=== PATIENT | male | born 1955 | race Caucasian/White ===

== ENCOUNTER 2017-07-21 06:50 | Day surgery (SDC) | payer BC, SELFPAY ==
[~2017-07-21] VITALS: Ht 172.7 cm; Wt 83.9 kg
[~2017-07-21 06:50] MED LIST: AMLO5 PO; ASPI81CH PO; ATOR10 PO; Aspir-Trin325 MG PO; FISH OIL + D31 EACH PO; GABA100 PO; MELO7.5; METO50ER PO; NITR.4SL SL; Norco 10-325 T1 EACH PO; PANT40 PO
== END 2017-07-21 22:36 | disposition home or self-care (01) ==
LOC: ORSCMMR 06:50
PROVIDERS: Internal Medicine Gastroenterology
PROC: 0DB68ZX Excision of Stomach, Via Natural or Artificial Opening Endoscopic, Diagnostic (ICD-10-PCS; principal; 2017-07-21 08:00)
PROC: 0DB58ZX Excision of Esophagus, Via Natural or Artificial Opening Endoscopic, Diagnostic (ICD-10-PCS; principal; 2017-07-21 08:00)
PROC: 0D758ZZ Dilation of Esophagus, Via Natural or Artificial Opening Endoscopic (ICD-10-PCS; principal; 2017-07-21 08:00)
PROC: 0DB48ZX Excision of Esophagogastric Junction, Via Natural or Artificial Opening Endoscopic, Diagnostic (ICD-10-PCS; principal; 2017-07-21 08:00)
DX: R13.14 Dysphagia, pharyngoesophageal phase (principal); K21.9 Gastro-esophageal reflux disease without esophagitis; K29.70 Gastritis, unspecified, without bleeding; K44.9 Diaphragmatic hernia without obstruction or gangrene; I10 Essential (primary) hypertension; I25.10 Atherosclerotic heart disease of native coronary artery without angina pectoris; Z79.82 Long term (current) use of aspirin; Z79.899 Other long term (current) drug therapy
CPT/HCPCS: 88305; 88342; C1726; J7120

== ENCOUNTER 2017-08-17 08:53 | Day surgery (SDC) | payer BC, SELFPAY ==
[~2017-08-17] VITALS: Ht 172.7 cm; Wt 84.4 kg
== END 2017-08-17 22:33 | disposition home or self-care (01) ==
LOC: ORSCMMR 08:53 → ORD 10:00 → ORSCMMR 22:33
PROVIDERS: Internal Medicine Gastroenterology
PROC: 0DJD8ZZ Inspection of Lower Intestinal Tract, Via Natural or Artificial Opening Endoscopic (ICD-10-PCS; principal; 2017-08-17 10:00)
DX: D50.0 Iron deficiency anemia secondary to blood loss (chronic) (principal); I25.10 Atherosclerotic heart disease of native coronary artery without angina pectoris; I10 Essential (primary) hypertension; K21.9 Gastro-esophageal reflux disease without esophagitis; K57.30 Diverticulosis of large intestine without perforation or abscess without bleeding; K64.8 Other hemorrhoids; Z79.82 Long term (current) use of aspirin; Z79.899 Other long term (current) drug therapy
CPT/HCPCS: J7120

== ENCOUNTER 2020-03-23 13:44 | Emergency (ER) | payer OTHER ==
[~2020-03-23] VITALS: Ht 170.2 cm; Wt 81.7 kg
[~2020-03-23 13:44] MED LIST changes: -AMLO5 PO; -ASPI81CH PO; -ATOR10 PO; -GABA100 PO; -METO50ER PO; -Norco 10-325 T1 EACH PO; -PANT40 PO
[2020-03-23] MEDS ORDERED: GABA300 PO (14:33)
[2020-03-23] MEDS ORDERED: PANT40 PO (14:34)
[2020-03-23] MEDS ORDERED: ATOR10 PO (14:34)
[2020-03-23 14:35] LABS: BASOPHILS ABSOLUTE AUTO 0.05 K/mm3 (0.00-0.23); BASOPHILS PERCENT AUTO 1 % (0-2); EOSINOPHILS ABSOLUTE AUTO 0.57 K/mm3 (0.00-0.68); EOSINOPHILS PERCENT AUTO 8 % (0-6); Hematocrit 38.9 % (37.0-53.0); Hemoglobin 12.4 g/dL (13.5-17.5); IMMATURE GRAN ABSOLUTE AUTO 0.02 K/mm3 (0.00-0.10); IMMATURE GRAN PERCENT AUTO 0 % (0-1); LYMPHOCYTES ABSOLUTE AUTO 2.25 K/mm3 (0.84-5.20); LYMPHOCYTES PERCENT AUTO 32 % (21-46); MONOCYTES ABSOLUTE AUTO 0.64 K/mm3 (0.16-1.47); MONOCYTES PERCENT AUTO 9 % (4-13); Mean Corpuscular HGB 29.8 pg (26.0-34.0); Mean Corpuscular HGB Conc 31.9 g/dL (31.5-36.5); Mean Corpuscular Volume 94 fL (80-100); Mean Platelet Volume 9.8 fL (9.1-12.4); NEUTROPHILS ABSOLUTE AUTO 3.56 K/mm3 (1.96-9.15); NEUTROPHILS PERCENT AUTO 50 % (41-73); Platelet Count 188 K/mm3 (150-400); RDW Coefficient Variation 12.6 % (11.7-14.2); RDW Standard Deviation 43.6 fL (35.1-46.3); Red Blood Cell Count 4.16 M/mm3 (4.30-5.90); White Blood Cell Count 7.09 K/mm3 (4.00-11.30)
[2020-03-23] MEDS ORDERED: Norco 10-325 T1 EACH PO (14:36)
[2020-03-23] MEDS ORDERED: MOBIC15 MG PO (14:36)
[2020-03-23] MEDS ORDERED: METO50ER PO (14:37)
[2020-03-23] MEDS ORDERED: AMLODIPINE BES2.5 MG PO (14:38)
[2020-03-23] MEDS ORDERED: Aspir 8181 MG PO (14:39)
[2020-03-23 15:02] LABS: Alanine Aminotransfer (ALT/SGP 28 U/L (12-78); Albumin, Blood 3.8 g/dL (3.4-5.0); Albumin/Globulin Ratio 1.1 (0.8-1.8); Alk Phos 90 U/L (50-136); Anion Gap 4 mmol/L (6-16); Aspartate Aminotrans (AST/SGOT 22 U/L (12-37); Bilirubin, Total 0.6 mg/dL (0.1-1.0); Blood Urea Nitrogen 17 mg/dL (8-24); Bun/Creatinine Ratio 17.5 (12.0-20.0); CO2, Blood 30 mmol/L (21-32); Calcium, Blood 8.9 mg/dL (8.5-10.1); Chloride, Blood 106 mmol/L (98-108); Creatinine, Blood 0.97 mg/dL (0.60-1.20); Globulin, Blood 3.4 g/dL (2.2-4.0); Glomerular Filtration Rate >60 (60-); Glucose, Blood 112 mg/dL (70-99); Potassium, Blood 4.2 mmol/L (3.5-5.5); Sodium, Blood 140 mmol/L (136-145); Total Protein, Blood 7.2 g/dL (6.4-8.2); Troponin I <0.015 ng/mL (0.000-0.040)
== END 2020-03-23 18:01 | disposition home or self-care (01) ==
LOC: ER 13:44
PROVIDERS: Physician Assistant
DX: R07.9 Chest pain, unspecified (principal); Z79.82 Long term (current) use of aspirin; Z79.899 Other long term (current) drug therapy
CPT/HCPCS: 36415; 71046; 80053; 84484; 85025; 93005; 93010; 99285-25

== ENCOUNTER 2020-04-25 05:35 | Day surgery (SDC) | payer OTHER ==
[~2020-04-25] VITALS: Ht 170.2 cm; Wt 81.0 kg
[~2020-04-25 05:35] MED LIST changes: +AMLODIPINE BES2.5 MG PO; +ATOR10 PO; +Aspir 8181 MG PO; +GABA300 PO; +METO50ER PO; +MOBIC15 MG PO; +Norco 10-325 T1 EACH PO; +PANT40 PO; +VITAMIN D325 MC3 PO
[2020-04-25] MEDS ORDERED: NITR.4SL SL (06:20)
--- NOTE | 2020-04-25 08:45 | NUR ---
TO RECOVERY ROOM VIA RECLINER. DENIES CHEST PAIN. CIRCULATION, MOTION, SENSATION NORMAL.
--- NOTE | 2020-04-25 09:53 | NUR ---
2 CC AIR REMOVED FROM TR BAND. NO BLEEDING AT SITE.
--- NOTE | 2020-04-25 10:11 | NUR ---
AIR REMOVED FROM R WRIST TR BAND /S ANY SWELLING OR BLEEDING.
--- NOTE | 2020-04-25 10:55 | NUR ---
DRESSING FOR DISCHARGE.TR BAND REMOVED. NO BLEEDING AT SITE. CLOTH DOT, AND IMMOBILIZER APPLIED. DISCHARGE INSTRUCTIONS GIVEN WITH VERVAL AND WRITTEN UNDERSTANDING.
--- NOTE | 2020-04-25 11:00 | NUR ---
IV REMOVED INTACT. 2X2, COBAN AND MANUAL PRESSURE APPLIED.
--- NOTE | 2020-04-25 11:05 | NUR ---
DISCHARGED HOME VIA WHEELCHAIR. DRIVING. SLING APPLIED.
== END 2020-04-25 11:40 | disposition home or self-care (01) ==
LOC: MHTC 05:35
PROC: 4A023N7 Measurement of Cardiac Sampling and Pressure, Left Heart, Percutaneous Approach (ICD-10-PCS; principal; 2020-04-25)
PROC: B211YZZ Fluoroscopy of Multiple Coronary Arteries using Other Contrast (ICD-10-PCS; principal; 2020-04-25)
DX: I25.118 Atherosclerotic heart disease of native coronary artery with other forms of angina pectoris (principal); I10 Essential (primary) hypertension; E78.5 Hyperlipidemia, unspecified; I49.3 Ventricular premature depolarization; K21.9 Gastro-esophageal reflux disease without esophagitis; Z79.82 Long term (current) use of aspirin; Z88.1 Allergy status to other antibiotic agents; Z79.899 Other long term (current) drug therapy
CPT/HCPCS: 76937; 85347; 93458; 93571; 99152; 99153; C1769; C1887; C1894; J0153; J1644; J2250; J3010; J7030; J7040; J7050; Q9967

== ENCOUNTER 2020-05-27 12:50 | Day surgery (SDC) | payer MEDICARE ==
[~2020-05-27] VITALS: Ht 170.2 cm; Wt 81.5 kg
== END 2020-05-27 15:03 | disposition home or self-care (01) ==
LOC: ORSCSDS 12:50
PROVIDERS: Surgery
PROC: 0DB48ZX Excision of Esophagogastric Junction, Via Natural or Artificial Opening Endoscopic, Diagnostic (ICD-10-PCS; principal; 2020-05-27 14:00)
PROC: 0DB68ZX Excision of Stomach, Via Natural or Artificial Opening Endoscopic, Diagnostic (ICD-10-PCS; principal; 2020-05-27 14:00)
DX: K44.9 Diaphragmatic hernia without obstruction or gangrene (principal); K31.7 Polyp of stomach and duodenum; K20.90 Esophagitis, unspecified without bleeding; I10 Essential (primary) hypertension; E78.5 Hyperlipidemia, unspecified; K21.9 Gastro-esophageal reflux disease without esophagitis; E66.01 Morbid (severe) obesity due to excess calories; Z68.36 Body mass index [BMI] 36.0-36.9, adult; Z79.82 Long term (current) use of aspirin; Z79.899 Other long term (current) drug therapy
CPT/HCPCS: 88305; J2704; J7120

== ENCOUNTER 2020-06-26 06:11 | Day surgery (SDC) | payer MEDICARE ==
[~2020-06-26] VITALS: Ht 170.2 cm; Wt 81.4 kg
--- NOTE | 2020-06-26 06:49 | NUR ---
Ambulatory in Day Surgery History, Chart, Medications and Allergies reviewed before start of procedure. Lungs clear T/O to Auscultation. Pre-Op teaching done. Pt verbalizes understanding.
--- NOTE | 2020-06-26 13:40 | NUR ---
DR MCWILLIAMS IN [facility], DISCUSSED PT'S STATUS. REPORTS TO KEEP PT NPO AT THIS TIME. DISCUSSED PT'S PAIN. PT APPEARS TO BE RESTING QUIETLY WHEN NOT DISTURBED BUT REPORTS 8/10 WHEN DISCUSSING PAIN WITH PT ON ARRIVAL TO FLOOR.
--- NOTE | 2020-06-26 16:49 | NUR ---
DR LINDSEY RECENTLY TO SEE PT.
--- NOTE | 2020-06-26 18:31 | NUR ---
SHIFT SUMMARY PT HAD PROCEDURE TODAY. PT VSS. PT REPORTS PAIN IN UPPER ABD/RIGHT CHEST AREA. PT BEEN MED PRN PAIN. PT BEEN ASSISTED WITH ADL'S PRN. DR LINDSEY BEEN TO SEE PT COUPLE TIMES TODAY. CARDIOLOGY REPORTED TO COME SEE PT TODAY PER DR LINDSEY REQ. PT USING CALL LIGHT APPR. IVF IN PLACE.
--- NOTE | 2020-06-27 05:43 | NUR ---
SHIFT SUMMARY: RONI IS A&OX4. VSS, NO ACUTE EVENTS OVERNIGHT. HE REPORTS MINIMAL PAIN CONTROL WITH THE NORCO. HE CONTINUES TO COMPLAIN OF SPASMS IN THE EPIGASTRIC REGION. HE IS USING THE URINAL WITHOUT DIFFICULTY. HE IS ABLE TO MAKE HIS NEEDS KNOWN. HE IS TOLERATING SIPS/CHIPS WITH NO NAUSEA OR VOMITING. IV TO R FOREARM PATENT. HE IS LYING IN BED WITH IS CALL LIGHT IN REACH. WILL REPORT TO DAY SHIFT RN.
--- NOTE | 2020-06-27 08:21 | NUR ---
DR LINDSEY HERE RECENTLY TO SEE PT. REPORTS TO START C.L. DIET. REPORTS WILL PLACE OTHER ORDERS.
--- NOTE | 2020-06-27 09:44 | NUR ---
PT RECENTLY REPORTED PAIN DOING MUCH BETTER AFTER WALKING AROUND A LITTLE.
--- NOTE | 2020-06-27 12:01 | NUR ---
PT REPORTS PAIN COMING BACK, REQ PAIN MEDICATION. DISCUSSED WITH DR LINDSEY. SEE ORDERS.
--- NOTE | 2020-06-27 16:04 | NUR ---
DR LINDSEY HERE TO SEE PT. REPORTS WILL WRITE D/C ORDERS. PT REPORTS EATING SMALL AMTS AND DRINKING ENOUGH. PT REPORTS VOIDING 3-4 TIMES TODAY AND HAVING BM TODAY. PT REPORTS PAIN TOLERABLE ON PO PAIN MEDICATION. PT UP IND.
[2020-06-27] MEDS ORDERED: METO10 PO (17:20)
[2020-06-27] MEDS ORDERED: ONDA4ODT MM (17:20)
--- NOTE | 2020-06-27 17:34 | NUR ---
DISCHARGE: PT EATING AND DRINKING, PAIN CONTROLLED ON PO PAIN MEDICATION. PT REPORTS PASSING GAS AND HAD BM TODAY. PT VOIDING. PT/FAMILY REPORTS UNDERSTANDING OF DISCHARGE INSTRUCTIONS. PT SENT WITH PAPERWORK AND SCRIPTS. PT OUT BY W/C WITH FAMILY GIVING PT RIDE HOME. PT REPORTS HAVING ALL BELONGINGS. PT UP IND WITH STEADY GAIT.
== END 2020-06-27 17:49 | disposition home or self-care (01) ==
LOC: ORSCMMR 06:11 → ORD 07:30 → SURS 13:32 → ORSCMMR 06-27 17:49 → SURS 06-27 17:49
PROVIDERS: Surgery
PROC: 0DV44ZZ Restriction of Esophagogastric Junction, Percutaneous Endoscopic Approach (ICD-10-PCS; principal; 2020-06-26 07:30)
PROC: 0BUT4JZ Supplement Diaphragm with Synthetic Substitute, Percutaneous Endoscopic Approach (ICD-10-PCS; principal; 2020-06-26 07:30)
DX: K44.9 Diaphragmatic hernia without obstruction or gangrene (principal); N40.0 Benign prostatic hyperplasia without lower urinary tract symptoms; E78.5 Hyperlipidemia, unspecified; I10 Essential (primary) hypertension; I25.10 Atherosclerotic heart disease of native coronary artery without angina pectoris; Z79.899 Other long term (current) drug therapy; Z79.82 Long term (current) use of aspirin
CPT/HCPCS: 84484; 88302; 93005; 93010; A9270; C1781; J0690; J1100; J2001; J2250; J2370; J2405; J2704; J2765; J3010; J7120

== ENCOUNTER 2022-04-07 11:34 | Emergency (ER) | payer MEDICARE ==
[~2022-04-07] VITALS: Ht 170.2 cm; Wt 81.7 kg
[~2022-04-07 11:34] MED LIST changes: +METO10 PO; +ONDA4ODT MM
[2022-04-07 12:06] LABS: BASOPHILS ABSOLUTE AUTO 0.04 K/mm3 (0.00-0.23); BASOPHILS PERCENT AUTO 1 % (0-2); EOSINOPHILS ABSOLUTE AUTO 0.42 K/mm3 (0.00-0.68); EOSINOPHILS PERCENT AUTO 6 % (0-6); Hematocrit 41.6 % (37.0-53.0); Hemoglobin 13.8 g/dL (13.5-17.5); IMMATURE GRAN ABSOLUTE AUTO 0.01 K/mm3 (0.00-0.10); IMMATURE GRAN PERCENT AUTO 0 % (0-1); LYMPHOCYTES PERCENT AUTO 33 % (21-46); MONOCYTES PERCENT AUTO 9 % (4-13); Mean Corpuscular HGB 30.8 pg (26.0-34.0); Mean Corpuscular HGB Conc 33.2 g/dL (31.5-36.5); Mean Corpuscular Volume 93 fL (80-100); Mean Platelet Volume 9.5 fL (9.1-12.4); NEUTROPHILS ABSOLUTE AUTO 3.85 K/mm3 (1.96-9.15); NEUTROPHILS PERCENT AUTO 51 % (41-73); Platelet Count 210 K/mm3 (150-400); RDW Standard Deviation 44.5 fL (35.1-46.3); Red Blood Cell Count 4.48 M/mm3 (4.30-5.90); White Blood Cell Count 7.52 K/mm3 (4.00-11.30)
[2022-04-07 12:25] LABS: Albumin, Blood 4.1 g/dL (3.4-5.0); Albumin/Globulin Ratio 1.1 (0.8-1.8); Bilirubin, Total 0.9 mg/dL (0.1-1.0); Bun/Creatinine Ratio 19.3 (12.0-20.0); Calcium, Blood 9.6 mg/dL (8.5-10.1); Creatinine, Blood 1.19 mg/dL (0.60-1.20); Globulin, Blood 3.8 g/dL (2.2-4.0); Potassium, Blood 3.9 mmol/L (3.5-5.5); Total Protein, Blood 7.9 g/dL (6.4-8.2)
== END 2022-04-07 16:33 | disposition home or self-care (01) ==
LOC: ER 11:34
PROVIDERS: Physician Assistant
DX: R07.89 Other chest pain (principal); I10 Essential (primary) hypertension; I25.10 Atherosclerotic heart disease of native coronary artery without angina pectoris; Z79.82 Long term (current) use of aspirin; Z79.899 Other long term (current) drug therapy; Z88.1 Allergy status to other antibiotic agents
CPT/HCPCS: 36415; 71046; 80053; 83690; 84484; 85025; 93005; 93010

== ENCOUNTER 2023-05-06 11:59 | Emergency (ER) | payer OTHER ==
[~2023-05-06] VITALS: Ht 170.2 cm; Wt 81.7 kg
[2023-05-06 12:32] LABS: BASOPHILS ABSOLUTE AUTO 0.03 K/mm3 (0.00-0.23); BASOPHILS PERCENT AUTO 1 % (0-2); EOSINOPHILS ABSOLUTE AUTO 0.52 K/mm3 (0.00-0.68); EOSINOPHILS PERCENT AUTO 9 % (0-6); Hematocrit 39.7 % (37.0-53.0); Hemoglobin 12.7 g/dL (13.5-17.5); IMMATURE GRAN ABSOLUTE AUTO 0.02 K/mm3 (0.00-0.10); IMMATURE GRAN PERCENT AUTO 0 % (0-1); LYMPHOCYTES ABSOLUTE AUTO 2.07 K/mm3 (0.84-5.20); LYMPHOCYTES PERCENT AUTO 34 % (21-46); MONOCYTES ABSOLUTE AUTO 0.62 K/mm3 (0.16-1.47); MONOCYTES PERCENT AUTO 10 % (4-13); Mean Corpuscular HGB 29.6 pg (26.0-34.0); Mean Corpuscular Volume 93 fL (80-100); Mean Platelet Volume 9.2 fL (9.1-12.4); NEUTROPHILS ABSOLUTE AUTO 2.82 K/mm3 (1.96-9.15); NEUTROPHILS PERCENT AUTO 46 % (41-73); Platelet Count 185 K/mm3 (150-400); RDW Standard Deviation 43.8 fL (35.1-46.3); Red Blood Cell Count 4.29 M/mm3 (4.30-5.90); White Blood Cell Count 6.08 K/mm3 (4.00-11.30)
[2023-05-06 12:47] LABS: Albumin, Blood 3.9 g/dL (3.4-5.0); Albumin/Globulin Ratio 1.1 (0.8-1.8); Bilirubin, Total 0.9 mg/dL (0.1-1.0); Calcium, Blood 8.6 mg/dL (8.5-10.1); Creatinine, Blood 1.22 mg/dL (0.60-1.20); Globulin, Blood 3.4 g/dL (2.2-4.0); Potassium, Blood 4.8 mmol/L (3.5-5.5); Total Protein, Blood 7.3 g/dL (6.4-8.2)
[2023-05-06 14:26] LABS: Source, Urine Clean Catch
[2023-05-06 14:30] LABS: Appearance, Urine Clear (Clear); Bilirubin, Urine Neg (Neg); Blood, Urine Neg (Neg); Glucose Qualitative, Urine Neg (Neg); Ketones, Urine Neg (Neg); Leukocyte Esterase, Urine Neg (Neg); Nitrite, Urine Neg (Neg); Protein, Urine Neg (Neg); Specific Gravity, Urine 1.015 (1.003-1.022); Urobilinogen, Urine NORM (Normal)
[2023-05-06 14:38] LABS: Color, Urine Pale Yellow (P-Yellow)
[2023-05-06] MEDS ORDERED: PANTOPRAZOLE SO40 M2 PO (15:24)
[2023-05-06 16:23] VITALS: BP 119/88
== END 2023-05-06 16:27 | disposition home or self-care (01) ==
LOC: ER 13:20
PROVIDERS: Student in an Organized Health Care Education/Training Program
DX: R13.10 Dysphagia, unspecified (principal); I10 Essential (primary) hypertension; I25.10 Atherosclerotic heart disease of native coronary artery without angina pectoris; Z79.1 Long term (current) use of non-steroidal anti-inflammatories (NSAID); Z79.899 Other long term (current) drug therapy; Z88.1 Allergy status to other antibiotic agents
CPT/HCPCS: 71045; 80053; 81003; 85025; 99284-25

== ENCOUNTER 2023-05-17 13:40 | Day surgery (SDC) | payer OTHER ==
[~2023-05-17] VITALS: Ht 170.2 cm; Wt 77.8 kg
[~2023-05-17 13:40] MED LIST changes: +PANTOPRAZOLE SO40 M2 PO
[2023-05-17] MEDS ORDERED: CODACE30 (13:55)
[2023-05-17 16:22] VITALS: BP 105/81
== END 2023-05-17 15:52 | disposition home or self-care (01) ==
LOC: ORSCSDS 13:40
PROVIDERS: Specialist
PROC: 0DB58ZX Excision of Esophagus, Via Natural or Artificial Opening Endoscopic, Diagnostic (ICD-10-PCS; principal; 2023-05-17 15:15)
DX: R13.10 Dysphagia, unspecified (principal); K29.70 Gastritis, unspecified, without bleeding; I25.2 Old myocardial infarction; I10 Essential (primary) hypertension; E78.5 Hyperlipidemia, unspecified; K21.9 Gastro-esophageal reflux disease without esophagitis; Z79.82 Long term (current) use of aspirin; Z79.899 Other long term (current) drug therapy
CPT/HCPCS: 88305; J0461; J2001; J2405; J2704; J7120; Q9968

== ENCOUNTER 2024-05-05 08:11 | Emergency (ER) | payer OTHER ==
[~2024-05-05] VITALS: Ht 170.2 cm; Wt 81.7 kg
[~2024-05-05 08:11] MED LIST changes: +ASPI325 PO; +ATOR20 PO; +CODACE30; +FERSU300 PO; +METO25ER PO; +MULVITA PO; +TAMS.4ER PO
[2024-05-05 09:13] LABS: BASOPHILS ABSOLUTE AUTO 0.03 K/mm3 (0.00-0.23); BASOPHILS PERCENT AUTO 0 % (0-2); EOSINOPHILS ABSOLUTE AUTO 0.47 K/mm3 (0.00-0.68); EOSINOPHILS PERCENT AUTO 5 % (0-6); Hematocrit 36.5 % (37.0-53.0); Hemoglobin 11.9 g/dL (13.5-17.5); IMMATURE GRAN ABSOLUTE AUTO 0.02 K/mm3 (0.00-0.10); IMMATURE GRAN PERCENT AUTO 0 % (0-1); LYMPHOCYTES ABSOLUTE AUTO 2.25 K/mm3 (0.84-5.20); LYMPHOCYTES PERCENT AUTO 24 % (21-46); MONOCYTES ABSOLUTE AUTO 0.88 K/mm3 (0.16-1.47); MONOCYTES PERCENT AUTO 10 % (4-13); Mean Corpuscular HGB 29.4 pg (26.0-34.0); Mean Corpuscular HGB Conc 32.6 g/dL (31.5-36.5); Mean Corpuscular Volume 90 fL (80-100); Mean Platelet Volume 9.4 fL (9.1-12.4); NEUTROPHILS ABSOLUTE AUTO 5.61 K/mm3 (1.96-9.15); NEUTROPHILS PERCENT AUTO 61 % (41-73); Platelet Count 171 K/mm3 (150-400); RDW Coefficient Variation 13.9 % (11.7-14.2); RDW Standard Deviation 45.8 fL (35.1-46.3); Red Blood Cell Count 4.05 M/mm3 (4.30-5.90); White Blood Cell Count 9.26 K/mm3 (4.00-11.30)
[2024-05-05 09:36] LABS: Source, Urine Clean Catch
[2024-05-05 09:38] LABS: Appearance, Urine Clear (Clear); Bilirubin, Urine Neg (Neg); Blood, Urine 2+ (Neg); Color, Urine Yellow (P-Yellow); Glucose Qualitative, Urine Neg (Neg); Ketones, Urine Neg (Neg); Leukocyte Esterase, Urine Neg (Neg); Nitrite, Urine Neg (Neg); Protein, Urine Neg (Neg); Specific Gravity, Urine 1.015 (1.003-1.022); Urobilinogen, Urine NORM (Normal)
[2024-05-05 09:43] LABS: Albumin, Blood 3.5 g/dL (3.4-5.0); Bilirubin, Total 0.9 mg/dL (0.1-1.0); Bun/Creatinine Ratio 17.7 (12.0-20.0); Creatinine, Blood 1.24 mg/dL (0.60-1.20); Globulin, Blood 3.6 g/dL (2.2-4.0); Potassium, Blood 4.4 mmol/L (3.5-5.5); Total Protein, Blood 7.1 g/dL (6.4-8.2)
[2024-05-05 09:47] LABS: Bacteria Rare /hpf; Squamous Epithelial Cells Rare /hpf (Few); White Blood Cells, Urine 0-2 /hpf (0-5)
[2024-05-05] MEDS ORDERED: AMOCLA875 PO (10:58)
[2024-05-05 11:00] VITALS: BP 147/86
== END 2024-05-05 11:30 | disposition home or self-care (01) ==
LOC: ER 08:11
PROVIDERS: Student in an Organized Health Care Education/Training Program
DX: K57.32 Diverticulitis of large intestine without perforation or abscess without bleeding (principal); I10 Essential (primary) hypertension; I25.10 Atherosclerotic heart disease of native coronary artery without angina pectoris; I25.2 Old myocardial infarction; Z88.1 Allergy status to other antibiotic agents; Z88.5 Allergy status to narcotic agent; Z79.82 Long term (current) use of aspirin; Z79.899 Other long term (current) drug therapy
CPT/HCPCS: 74177; 80053; 81001; 83690; 85025; 93005; 93010; 99284-25; Q9967

== ENCOUNTER → 2025-04-08 | Outpatient (CLI) | payer OTHER ==
[~2025-04-08] MED LIST changes: +AMOCLA875 PO
[2025-04-08 13:39] LABS: Source, Urine Clean Catch
[2025-04-08 18:04] LABS: Bilirubin, Urine Neg (Neg); Color, Urine Yellow (P-Yellow); Glucose Qualitative, Urine Neg (Neg); Ketones, Urine Neg (Neg); Leukocyte Esterase, Urine Neg (Neg); Protein, Urine 2+ (Neg); Specific Gravity, Urine 1.020 (1.003-1.022); Urobilinogen, Urine NORM (Normal)
[2025-04-08 18:18] LABS: Red Blood Cells, Urine 0-2 /hpf (0-2); White Blood Cells, Urine 0-2 /hpf (0-5)
== END ==
LOC: LAB SHORT 13:38 → LAB 13:38
PROVIDERS: Nurse Practitioner Family
DX: R31.29 Other microscopic hematuria (principal)
CPT/HCPCS: 81001